=== PATIENT | male | born 1950 | race Caucasian/White ===

== ENCOUNTER → 2018-09-02 | Outpatient (CLI) | payer OTHER ==
[2018-09-02 15:13] LABS: U Amphetamine Screen Not Detected; U Barbituate Screen Not Detected; U Benzodiazapine Screen Not Detected; U Buprenorphine Screen Not Detected; U Cannabinoids Screen Not Detected; U Cocaine Screen Not Detected; U Methadone Screen Not Detected; U Methamphetamine Screen Not Detected; U Opiates Screen DETECTED; U Oxycodone Screen Not Detected; U Phencyclidine Screen Not Detected; U Propoxyphene Screen Not Detected
== END | disposition home or self-care (01) ==
LOC: LAB SHORT 12:40 → LAB 12:40
PROVIDERS: Internal Medicine Hematology & Oncology
DX: Z51.81 Encounter for therapeutic drug level monitoring (principal); Z79.899 Other long term (current) drug therapy
CPT/HCPCS: G0480

== ENCOUNTER → 2018-11-27 | Outpatient (CLI) | payer OTHER ==
[2018-11-27 14:26] LABS: U Amphetamine Screen Not Detected; U Barbituate Screen Not Detected; U Benzodiazapine Screen Not Detected; U Buprenorphine Screen Not Detected; U Cannabinoids Screen Not Detected; U Cocaine Screen Not Detected; U Methadone Screen Not Detected; U Methamphetamine Screen Not Detected; U Opiates Screen DETECTED; U Oxycodone Screen Not Detected; U Phencyclidine Screen Not Detected; U Propoxyphene Screen Not Detected
== END | disposition home or self-care (01) ==
LOC: LAB 12:29 → LAB SHORT 12:29
PROVIDERS: Internal Medicine Hematology & Oncology
DX: Z51.81 Encounter for therapeutic drug level monitoring (principal); Z79.899 Other long term (current) drug therapy

== ENCOUNTER → 2020-06-03 | Outpatient (CLI) | payer OTHER ==
[2020-06-03 18:41] LABS: Thyroxine (T4) 12.1 ug/dL (4.5-12.1)
[2020-06-03 18:42] LABS: Alanine Aminotransfer (ALT/SGP 32 U/L (12-78); Albumin, Blood 4.1 g/dL (3.4-5.0); Albumin/Globulin Ratio 1.1 (0.8-1.8); Alk Phos 67 U/L (50-136); Anion Gap 10 mmol/L (6-16); Aspartate Aminotrans (AST/SGOT 26 U/L (12-37); Bilirubin, Total 0.5 mg/dL (0.1-1.0); Blood Urea Nitrogen 13 mg/dL (8-24); Bun/Creatinine Ratio 19.3 (12.0-20.0); CHOL/HDL RATIO 3.4; CO2, Blood 27 mmol/L (21-32); Calcium, Blood 9.9 mg/dL (8.5-10.1); Chloride, Blood 100 mmol/L (98-108); Cholesterol 195 mg/dL (50-200); Creatinine, Blood 0.67 mg/dL (0.60-1.20); Globulin, Blood 3.9 g/dL (2.2-4.0); Glomerular Filtration Rate >60 (60-); Glucose, Blood 81 mg/dL (70-99); HDL Cholesterol 57 mg/dL (>39); Low Density Lipoprotein Chol 116 mg/dL (0-110); Phosphorus, Blood 3.8 mg/dL (2.5-4.9); Potassium, Blood 4.6 mmol/L (3.5-5.5); Sodium, Blood 137 mmol/L (136-145); Triglycerides 109 mg/dL (30-160); Very Low Density Lipoprot Chol 21 mg/dL (6-32)
== END | disposition home or self-care (01) ==
LOC: LAB 14:58 → LAB SHORT 14:58
PROVIDERS: Internal Medicine Hematology & Oncology
DX: M81.0 Age-related osteoporosis without current pathological fracture (principal); Z79.899 Other long term (current) drug therapy
CPT/HCPCS: 80053; 80061; 84100; 84436; 84443

== ENCOUNTER → 2020-10-31 | Outpatient (CLI) | payer OTHER ==
[2020-10-31 15:49] LABS: U Amphetamine Screen Not Detected; U Barbituate Screen Not Detected; U Benzodiazapine Screen Not Detected; U Buprenorphine Screen Not Detected; U Cannabinoids Screen Not Detected; U Cocaine Screen Not Detected; U Methadone Screen Not Detected; U Methamphetamine Screen Not Detected; U Opiates Screen DETECTED; U Oxycodone Screen Not Detected; U Phencyclidine Screen Not Detected; U Propoxyphene Screen Not Detected
== END | disposition home or self-care (01) ==
LOC: LAB SHORT 13:18 → LAB 13:18
PROVIDERS: Internal Medicine Hematology & Oncology
DX: Z51.81 Encounter for therapeutic drug level monitoring (principal); Z79.899 Other long term (current) drug therapy
CPT/HCPCS: G0480

== ENCOUNTER → 2022-03-28 | Outpatient (CLI) | payer OTHER ==
[2022-03-28 13:23] LABS: Source, Urine Voided
[2022-03-28 15:14] LABS: Appearance, Urine Hazy (Clear); Bilirubin, Urine Neg (Neg); Blood, Urine Neg (Neg); Color, Urine Yellow (P-Yellow); Glucose Qualitative, Urine Neg (Neg); Ketones, Urine Neg (Neg); Leukocyte Esterase, Urine Neg (Neg); Nitrite, Urine Neg (Neg); Protein, Urine 2+ (Neg); Specific Gravity, Urine 1.015 (1.003-1.022); Urobilinogen, Urine NORM (Normal)
[2022-03-28 15:34] LABS: Amorphous Heavy (0-Heavy); Red Blood Cells, Urine 0-2 /hpf (0-2); White Blood Cells, Urine 0-2 /hpf (0-5)
[2022-03-28 15:35] LABS: Bacteria Few /hpf; Squamous Epithelial Cells Not Seen /hpf (Few)
[2022-03-28 17:09] LABS: Albumin, Blood 3.6 g/dL (3.4-5.0); Albumin/Globulin Ratio 0.9 (0.8-1.8); Bilirubin, Total 0.4 mg/dL (0.1-1.0); Bun/Creatinine Ratio 24.9 (12.0-20.0); Calcium, Blood 9.8 mg/dL (8.5-10.1); Creatinine, Blood 0.44 mg/dL (0.60-1.20); Globulin, Blood 4.1 g/dL (2.2-4.0); Phosphorus, Blood 2.7 mg/dL (2.5-4.9); Potassium, Blood 4.3 mmol/L (3.5-5.5); Total Protein, Blood 7.7 g/dL (6.4-8.2)
[2022-03-29 09:57] LABS: U Amphetamine Screen Not Detected; U Barbituate Screen Not Detected; U Benzodiazapine Screen Not Detected; U Buprenorphine Screen Not Detected; U Cannabinoids Screen Not Detected; U Cocaine Screen Not Detected; U Methadone Screen Not Detected; U Methamphetamine Screen Not Detected; U Opiates Screen DETECTED; U Oxycodone Screen Not Detected; U Phencyclidine Screen Not Detected; U Propoxyphene Screen Not Detected
== END | disposition home or self-care (01) ==
LOC: LAB 13:18 → LAB SHORT 13:18
PROVIDERS: Internal Medicine Hematology & Oncology
DX: Z51.81 Encounter for therapeutic drug level monitoring (principal); R11.0 Nausea; R30.0 Dysuria; Z79.899 Other long term (current) drug therapy
CPT/HCPCS: 80053; 81001; 84100

== ENCOUNTER 2022-04-03 18:39 | Inpatient (IN) | payer OTHER ==
[~2022-04-03] VITALS: Ht 165.1 cm; Wt 86.0 kg
[2022-04-03 19:08] LABS: Base Excess Venous 14.7 mmol/L; Bicarbonate Venous 34.9 mmol/L (24.0-30.0); PCO2 Venous 65.7 mmHg (38-42); PO2 Venous 26.3 mmHg (38-42); pH Blood Venous 7.39 (7.34-7.37)
[2022-04-03 19:24] LABS: BASOPHILS ABSOLUTE AUTO 0.05 K/mm3 (0.00-0.23); BASOPHILS PERCENT AUTO 0 % (0-2); EOSINOPHILS ABSOLUTE AUTO 0.12 K/mm3 (0.00-0.68); EOSINOPHILS PERCENT AUTO 1 % (0-6); Hematocrit 32.5 % (37.0-53.0); Hemoglobin 10.9 g/dL (13.5-17.5); IMMATURE GRAN ABSOLUTE AUTO 0.06 K/mm3 (0.00-0.10); IMMATURE GRAN PERCENT AUTO 0 % (0-1); LYMPHOCYTES ABSOLUTE AUTO 1.27 K/mm3 (0.84-5.20); LYMPHOCYTES PERCENT AUTO 8 % (21-46); MONOCYTES ABSOLUTE AUTO 1.28 K/mm3 (0.16-1.47); MONOCYTES PERCENT AUTO 8 % (4-13); Mean Corpuscular HGB 29.9 pg (26.0-34.0); Mean Corpuscular HGB Conc 33.5 g/dL (31.5-36.5); Mean Corpuscular Volume 89 fL (80-100); Mean Platelet Volume 10.8 fL (9.1-12.4); NEUTROPHILS ABSOLUTE AUTO 12.89 K/mm3 (1.96-9.15); NEUTROPHILS PERCENT AUTO 82 % (41-73); Platelet Count 409 K/mm3 (150-400); RDW Coefficient Variation 13.2 % (11.7-14.2); RDW Standard Deviation 43.3 fL (35.1-46.3); Red Blood Cell Count 3.64 M/mm3 (4.30-5.90); White Blood Cell Count 15.67 K/mm3 (4.00-11.30)
[2022-04-03 20:00] LABS: Albumin/Globulin Ratio 0.7 (0.8-1.8); Bilirubin, Total 0.3 mg/dL (0.1-1.0); Bun/Creatinine Ratio 24.3 (12.0-20.0); Calcium, Blood 8.7 mg/dL (8.5-10.1); Creatinine, Blood 0.54 mg/dL (0.60-1.20); Globulin, Blood 4.3 g/dL (2.2-4.0); Potassium, Blood 4.4 mmol/L (3.5-5.5); Total Protein, Blood 7.3 g/dL (6.4-8.2)
[2022-04-03 20:14] LABS: Influenza A, PCR NEGATIVE (NEGATIVE); Influenza B, PCR NEGATIVE (NEGATIVE); Resp Syncytial Virus, PCR NEGATIVE (NEGATIVE); SARS-Cov-2 (COVID-19) PCR, MMC NEGATIVE (NEGATIVE)
[2022-04-03] MEDS ORDERED: LOSARTAN POTAS100 M1 PO ×2 (22:35)
[2022-04-03] MEDS ORDERED: FLUTICASONE-SA1 EA10 INH ×2 (22:35)
[2022-04-03] MEDS ORDERED: [UNRECOGNIZED DRUG - CODE] PO ×2 (22:36)
[2022-04-03] MEDS ORDERED: Ventolin/Prove6.7 GM INH ×2 (22:37)
[2022-04-03] MEDS ORDERED: SULFAMETHOXAZO1 EAC1 PO ×2 (22:37)
[2022-04-03] MEDS ORDERED: ONDA4ODT MM ×2 (22:37)
[2022-04-03] MEDS ORDERED: HYDCHL25 PO ×2 (22:38)
[2022-04-03] MEDS ORDERED: IPRAT-ALBUT 0.5-3 ML INH ×2 (22:38)
[2022-04-03] MEDS ORDERED: BREZTRI AEROS10.7 GM INH ×2 (22:38)
[2022-04-03 23:38] LABS: Percent Saturation 10.8 % (20.0-50.0)
[2022-04-04 04:55] LABS: Bun/Creatinine Ratio 26.4 (12.0-20.0); Creatinine, Blood 0.53 mg/dL (0.60-1.20); Potassium, Blood 4.6 mmol/L (3.5-5.5)
--- NOTE | 2022-04-04 06:16 | NUR ---
CUFFER SUMMARY PT ARRIVED TO THE UNIT W O2 SATS >90% ON 7L OXYMIZER. THE PT ARRIVED VERY ANXIOUS ABOUT HIS BREATHING AND HIS NEED TO URINATE. THE PT WAS ASSISTED TO THE BSC TO VOID WHERE HE WAS ABLE TO VOID <200ML URINE. THE EXERTION OF GETTING FROM THE BSC TO THE BED CAUSED THE PT'S O2 SATS TO DROP TO THE LOW 80'S REQUIRING 12L OXYMIZER TO RECOVER. THIS HAPPENED AGAIN LATER IN THE SHIFT BUT THIS TIME THE PT'S O2 SATS DROPPED TO THE MID 70'S SO RT WAS NOTIFED AND THE PT WAS PLACVED ON BIPAP IT TOOK HIM SEVERAL MINUTES TO RECOVER W 15L OXYMIZER AND HAVING MUCH INCREASED WOB. PROVIDER NOTIFIED OF CHANGE AND ORDERS FOR BIPAP AND ATIVAN WERE GIVEN. PT WAS GIVEN 0.5MG ATIVAN WHICH HELPED REDUCE HIS ANXIETY AND WOB. PT CURRENTLY THIS AM W 02 SATS >90% ON BIPAP 12/5 W 35% FIO2. PT'S NA LEVEL AT 119 THIS AM SO PROVIDER NOTIFIED AND NS FLUIDS WERE INCREASED TO 200ML/HR AND AN ORDER TO REDRAW THE NA AT 0730 WAS PLACED. NEURO THE PT HAS REMAINED ALERT AND ANXIOUS W MODERATE TO SEVERE TREMORS WHEN AWAKE. PT HAS BEEN COMMUNICATING APPROPRIATELY W STAFF ALL SHIFT. BP HAS BEEN TRENDING DOWN THIS SHIFT DESPITE FLUIDS RUNNING AT 200ML/HR, LAUNCH OPERATORRENE STOKES AND PROVIDER NOTIFIED OF CHANGES. PT REMAINS AFEBRILE THIS SHIFT. TELE SHOWING SR/ST 90'S-100'S. PT CURRENTLY SLEEPING W BIPAP ON AND NS RUNNING. WILL REPORT TO ONCOMING RENE.
[2022-04-04 10:26] LABS: Albumin, Blood 2.7 g/dL (3.4-5.0); Anion Gap 8 mmol/L (6-16); Blood Urea Nitrogen 12 mg/dL (8-24); Bun/Creatinine Ratio 23.7 (12.0-20.0); CO2, Blood 32 mmol/L (21-32); Calcium, Blood 7.8 mg/dL (8.5-10.1); Chloride, Blood 82 mmol/L (98-108); Creatinine, Blood 0.51 mg/dL (0.60-1.20); Glomerular Filtration Rate 109 (60-); Glucose, Blood 129 mg/dL (70-99); Potassium, Blood 4.6 mmol/L (3.5-5.5); Sodium, Blood 122 mmol/L (136-145)
--- NOTE | 2022-04-04 11:16 | NUR ---
AM NOTES: PT ON BIPAP UPON SHIFT CHANGE, PT WAS VERY ANXIOUS RESTLESS IN BED COULDNT GET COMFORTABLE, ATTEMPTED TO SWITCH PT TO OXYMIZER UPON PT'S REQUEST ON 7L AFTER 10 MINS PT DESATTED TO 84% PT KEEPS C/O HIS BACK IS HURTING FROM LAYING IN BED AND WANTS TO SIT ON THE SIDE OF THE BED, PT WAS PLACED BACK ON BIPAP PT WAS GETTING TACHYPNEC AND VERY ANXIOUS PT O2 MAINTAINED ABOVE 90% AFTER PLACED ON BIPAP, PT TOLERATED GETTING UP IN THE RECLINER PT STATED HE FEELS MUCH BETTER SITTING UP IN THE CHAIR. BREALFAST WAS HELD DUE TO BREATHING ISSUES, AT AROUND 10A PT WAS PLACED BACK TO OXYMIZER PER PT'S REQUEST ON 10L THIS TIME, PT ABLE TO MAINTAIN SATS ABOVE 90% EVEN WITH EXERTION, PT OFFERED HIS BREAKFAST TRAY ATTEMPTED TO EAT BUT HAD SOME COUGHING SPITS WITH IT, OFFERED HEALTH SHAKE INSTEAD PT AGREED. VITALS BP WAS SOFT PRIOR TO SHIFT CHANGE SYSTOLIC 90-100'S, MAP 50-60 FLUID RUNNING AT 200MLS/HR AT THIS TIME, TRENDING NA LEVELS LAST WAS DRAWN AT 10A CURRENTLY 122, HRR SR/ST AT 90'S, DENIES ANY CHEST PAIN/PRESSURE. PT CONDOM CATH GOT DISPLACED THIS MORNING PT NOW TOLERATING THE BEDSIDE COMMODE/URINAL. NO OTHER ISSUES REPORTED, PT CALLS APPROPRIATELY ABLE TO MAKE NEEDS KNWON, WILL CONTINUE TO MONITOR
--- NOTE | 2022-04-04 18:25 | NUR ---
PT SUMMARY: SEE PREVIOUS NOTES, PT NOW CURRENTLY ON 6L OF O2 VIA OXYMIZER PT TOLERATING WELL WAS ON BIPAP AFTER LUNCH TIME FELL ASLEEP FOR COUPLE OF HOURS AFTER ATIVAN WAS GIVEN DUE TO ANXIETY, PT'S BP WENT DOWN TO 80'S SYSTOLIC AFTER ATIVAN WAS GIVEN MAP ABOVE 60'S SYSTOLIC WENT BACK UP TO 100-115 WHEN AWAKE, OTHERWISE BP SYSTOLIC REMAINED ABOVE 120'S T/O SHIFT. PT DENIES ANY CHEST PAIN/PRESSURE STILL HAS UPON EXERTION USES THE BEDSIDE COMMODE FOR TOILETING, PT HAS BEEN CONTINENT ALL SHIFT. BROTHER CAME IN TO VISIT. DIET SWITCHED TO MECHANICAL SOFT PT LEFT DENTURES AT HOME, PT ABLE TO TOLERATE. BIPAP ON STANDBY NO OTHER ISSUES AT THIS TIME, ABLE TO MAKE NEEDS KNOWN CALLS APPROPRIATELY, WILL REPORT TO ONCOMING SHIFT
--- NOTE | 2022-04-04 22:50 | NUR ---
CARE ASSUMPTION: PATIENT ASLEEP IN BED WITH OXYMIZER 7L IN PLACE. O2 SATS >92%. PATIENT DIFFICULT TO AWAKE AND BECAME ANXIOUS WHEN AWAKE. THERAPEUTIC COMMUNICATION AND REPOSITIONING SETTLED HIM. ASSISTED TO BSC. BED LOW WITH CALL LIGHT IN REACH.
[2022-04-05 04:28] LABS: PO2 Arterial 95.2 mmHg (80-100)
[2022-04-05 04:29] LABS: PCO2 Arterial 71.9 mmHg (35-45); pH Blood Arterial 7.28 (7.35-7.45)
[2022-04-05 04:40] LABS: Hematocrit 30.8 % (37.0-53.0); Hemoglobin 9.8 g/dL (13.5-17.5); Mean Corpuscular HGB 29.6 pg (26.0-34.0); Mean Corpuscular HGB Conc 31.8 g/dL (31.5-36.5); Mean Corpuscular Volume 93 fL (80-100); Mean Platelet Volume 10.7 fL (9.1-12.4); Platelet Count 414 K/mm3 (150-400); RDW Coefficient Variation 13.4 % (11.7-14.2); RDW Standard Deviation 45.7 fL (35.1-46.3); Red Blood Cell Count 3.31 M/mm3 (4.30-5.90); White Blood Cell Count 11.89 K/mm3 (4.00-11.30)
--- NOTE | 2022-04-05 04:52 | NUR ---
UPDATE: PATIENT REFUSING BIPAP, INCREASED CONFUSION AND AGITATION. MEDICATED PER EMAR WITH INCREASED AGITATION. ABG RESULTED IN CRITICAL PH 7.28 AND CO2 71.9. CALL PLACED TO RESIDENT. PATIENT TO TRANSFER TO ICU.
[2022-04-05 05:02] LABS: Albumin, Blood 2.5 g/dL (3.4-5.0); Anion Gap 3 mmol/L (6-16); Blood Urea Nitrogen 14 mg/dL (8-24); Bun/Creatinine Ratio 25.5 (12.0-20.0); CO2, Blood 34 mmol/L (21-32); Calcium, Blood 7.6 mg/dL (8.5-10.1); Chloride, Blood 91 mmol/L (98-108); Creatinine, Blood 0.55 mg/dL (0.60-1.20); Glomerular Filtration Rate 107 (60-); Glucose, Blood 157 mg/dL (70-99); Phosphorus, Blood 2.5 mg/dL (2.5-4.9); Potassium, Blood 4.5 mmol/L (3.5-5.5); Sodium, Blood 128 mmol/L (136-145)
--- NOTE | 2022-04-05 05:23 | NUR ---
TRANSFER OF CARE: REPORT GIVEN TO FERMIN DENNIS, SILVERSMITH APPRENTICE. PATIENT TRANSFERRED TO ICU 9 VIA PCU BED. THIS RN CALLED AND SPOKE WITH PATIENT'S FRIEND AMILCAR AND PROVIDED AN UPDATE ON PATIENT CONDITION AND NEW ROOM LOCATION.
--- NOTE | 2022-04-05 05:42 | NUR ---
ASSESSMENT/ASSUMED CARE PT TRANSFERED FROM PCU TO ICU 9 FOR BIPAP AND PRECEDEX. PT ARRIVED VIA BED WITH STAFF. TRANSFERED TO BED BY STAFF WITH SLIDER SHEET. PT AWAKE FOLLOWING INSTRUCTIONS. SPEECH CLEAR AND APPROP. LUNGS CLEAR BUT DECREASE ON 6 LITERS HIF[place] NC. RT AT BEDSIDE TO PLACE PT ON BIPAP. HEART RATE 80'S. BP STABLE. SKIN DRY AND FLAKEY. MAWE. TURNING SELF IN BED. POWER GLIDE TO LEFT UPPER ARM WITH NS AT 100 ML/HR AND STARTED ON PRECEDEX AT 0.4 MCQ/KG/MIN. IV 20G TO LEFT FOREARM SALINE LOCKED. PT TURNED SELF TO RIGHT SIDE. 0600 MEDS GIVEN WITH SIPS OF WATER. PT GIVEN WARM BLANKET.
--- NOTE | 2022-04-05 08:00 | NUR ---
Received report from Winter LÓPEZ. Patient is sleeping with BIPAP in place and setttings of 14/5 and 25% with sats 95%. he is in SR 60-70's. When awakened he is very agitated and wants BIPAP off and after explantionplaced back on and helped with urinal. He has PowerGlide to CLIFTON and dressing intact and is infusing NS at 100 ml/hr and Precedex at 0.4 mcg/kg/hr. He has been using urinal with assist or up to bedside cammode. ORTEGA but weak. His speech is slurred at times and speaks very quickly. Whe he pulled BIPAP off he desatted very quicly to 60%'s and came up as quickly when replaced.
--- NOTE | 2022-04-05 09:52 | NUR ---
Patients by and went home to get his teeth. He has called several times to use urinal and assisted him. He remains on BIPAP 14/5 25% and has sats >90%. No changes to gtt settings.
--- NOTE | 2022-04-05 11:30 | NUR ---
Patient remaisn resting with BIPAP in place, No changes to BIPAP and or gtt settings. He is more understandable with care.. ORTEGA but weak. Assisted with Urinal.
--- NOTE | 2022-04-05 13:50 | NUR ---
Patient is awake and sitting up in bed. Changed linen and boosted with repositioning. He is curretly tolerating a sandwich and pepsi and is on NC 7L O2 . H ejustb asked to be placed back on BIPAP and is comfortable nowNo changes to gtt's
--- NOTE | 2022-04-05 16:07 | NUR ---
Patient has been off abnd on BIPAP when feeling SOB. he is oriented and is able yo communicate his needs. He becomes quickly tired with any activity. He is currently on BiPAP 14/5 and 30% and Sat>90%. He calls appropriately and asks for urinal and has had 600 ml yellow urine. NS at 60 ml/hr and Precedex 0.4 and seems to be keeping him calm. He has been calling friends and family when off BIPAP.
--- NOTE | 2022-04-05 18:01 | NUR ---
Patient awake sitting up in bedand is on 7L O2 via NC and is able to communicate his needs. He is ussually able to be off for 30 minuntes at a time and request to replace BIPAP. He is got 20ga PowerGlide CLIFTON and is infusing NS at 60 ml/hr and Precedex at 0.4 mcg/kg/hr and is working well to have him tolerate. He started to desat and request to have BIPAP placed and recovered from low 80 to 90's quickly. This is with minimal exertion in bed. He is now on 14 30%b Bipap and is at 95%. .
--- NOTE | 2022-04-05 20:00 | NUR ---
ASSESSMENT/ASSUMED CARE PT SITTING UP IN BED W/ BIPAP ON. RT REMOVED BIPAP AND PLACED PT ON 6L HIFLO NC. PT A/O, TALKING, FOLLOWING DIRECTIONS, MOVING SELF IN BED. LUNGS COARSE T/O, L EXP WHEEZES, SPO2 DOWN TO 89% BRIEFLY, COMES IMMEDIATELY BACK TO MID 90S. NSR, VSS. POWERGLIDE IN L UPPER ARM INFUSING PRECIDEX AT 0.4MCG/KG/MIN AND NS AT 60ML/HR. DRG PEELING UP, WILL BE CHANGING DRESSING. SKIN WARM, DRY AND FLAKEY. LEFT FOREARM IV TENDER TO FLUSH, D/C INTACT, NEW 20G IV PLACED TO L WRIST W/O DIFF.
--- NOTE | 2022-04-06 00:36 | NUR ---
BIPAP PT PLACED ON BIPAP. 06/01 FIO2 30%. PT SITTING UP IN BED, WATCHING TV. REPORTS IMPROVED PAIN /. PT STATES "PAIN NEVER GOES AWAY".
[2022-04-06 03:50] LABS: Hematocrit 31.4 % (37.0-53.0); Hemoglobin 9.9 g/dL (13.5-17.5); Mean Corpuscular HGB 29.7 pg (26.0-34.0); Mean Corpuscular HGB Conc 31.5 g/dL (31.5-36.5); Mean Corpuscular Volume 94 fL (80-100); Mean Platelet Volume 10.5 fL (9.1-12.4); Platelet Count 453 K/mm3 (150-400); RDW Coefficient Variation 13.5 % (11.7-14.2); RDW Standard Deviation 46.5 fL (35.1-46.3); Red Blood Cell Count 3.33 M/mm3 (4.30-5.90); White Blood Cell Count 10.72 K/mm3 (4.00-11.30)
[2022-04-06 04:12] LABS: Albumin, Blood 2.6 g/dL (3.4-5.0); Anion Gap 3 mmol/L (6-16); Blood Urea Nitrogen 18 mg/dL (8-24); CO2, Blood 33 mmol/L (21-32); Calcium, Blood 7.8 mg/dL (8.5-10.1); Chloride, Blood 95 mmol/L (98-108); Creatinine, Blood 0.42 mg/dL (0.60-1.20); Glomerular Filtration Rate 116 (60-); Glucose, Blood 167 mg/dL (70-99); Phosphorus, Blood 1.3 mg/dL (2.5-4.9); Potassium, Blood 4.6 mmol/L (3.5-5.5); Sodium, Blood 131 mmol/L (136-145)
--- NOTE | 2022-04-06 05:37 | NUR ---
SHIFT SUMMARY PT A/O X 4. TALKING AND FOLLOWING DIRECTIONS. ANXIOUS AT TIMES, ON PRECEDEX. LUNG SOUNDS CLEAR IN RUL, DIM IN RML/RLL. EXP WHEEZES IN SHABANA/LLL. PT RECIEVING Q4 NEBS. NSR W/ 1ST DEG IN 60-80S. VSS. PT ON BIPAP PERIODCALLY W/ FREQUENT BREAKS. ENCOURGED T/O NIGHT TO WEAR BIPAP. 14/5 FIO2 30%. WEARS 6L NC DURING BREAKS. SATS IN HIGH 90'S. OCCASIONAL DROPS TO 89% WITH A FAST RECOVERY. VIODS IN URINAL W/ ASSISTANCE.
[2022-04-06 05:55] LABS: PO2 Arterial 82.9 mmHg (80-100); pH Blood Arterial 7.42 (7.35-7.45)
--- NOTE | 2022-04-06 17:36 | NUR ---
SHIFT SUMMARY PT HAS REMAINED OFF BIPAP THROUGHOUT THE SHIFT. PT SPO2 HAS REMAINED >92% ON 6L O2 NC. PT WITH BREIF COMPLAINTS OF SOB WITH EXERTION. VITAL SIGNS STABLE. PT UP TO BEDSIDE COMMODE FOR ATTEMPTED BM'S MULTIPLE TIMES THIS SHIFT. PT WITH BM THIS AFTERNOON. PT VOIDS IN BSC. PG REMAINS IN PLACE WITH NS INFUSING TKO. PT REMAINS TREMULOUS WITH MOVEMENT. PT MED FOR PAIN AND ANXIETY PER EMAR. WILL CONTINUE TO MONITOR AND REPORT OFF TO ONCOMING RN.
--- NOTE | 2022-04-06 18:18 | NUR ---
ARRIVAL TO PCU/SHIFT SUMMARY THIS RN ASSUMED CARE AT 1815 AND RECEIVED REPORT FROM BALJIT LÓPEZ AT 1800. VSS. TELE SINUS TACH. PATIENT TRANSFERD TO PCU VIA WHEELCHAIR. PATIENT TRANSFERED TO PCU BED WITH A STAND BY ASSIST. PATIENT IS ALERT AND ORIENTED X4. PATIENT REPORTS HAVING A LARGE BM OVER IN ICU. PATIENT LUNGS SOUNDS THROUGHOUT TIGHT AND DIM. PATIENT IS ON 6L NC WITH SPO2 >95%. PATIENT REPORTS NO CHEST PAIN/PRESSURE OR SHORTNESS OF BREATH. UPON PAIN REASSESSMENT PATIENT PAIN HAS DECREASED FROM A 9 TO A 5. PATIENT IS TREMOLOUS. PATIENT IS IN NO CARDIAC OR RESPIRATORY DISTRESS. ORIENTED TO CALL LIGHT AND HOW TO USE IT. EDUCATED THE PATIENT ON PUSHING CALL LIGHT ONLY WHEN NEEDING ASSISTANCE FOR URGENT MATTERS . PATIENT HAS PUSHED CALL LIGHT FREQUENTLY AND OFTEN SINCE ARRIVING TO THE UNIT. WILL CONTINUE TO MONITOR AND PROVIDE CARE UNTIL HAND OFF WITH NEXT SHIFT.
--- NOTE | 2022-04-06 18:21 | NUR ---
TRANSFER TO PCU PT TAKEN TO PCU 17 BY WHEEL CHAIR. ALL PT MEDS AND BELONGINGS SENT WITH PT.
[2022-04-07 01:52] LABS: Base Excess Venous 10.1 mmol/L; PCO2 Venous 59.3 mmHg (38-42); pH Blood Venous 7.38 (7.34-7.37)
[2022-04-07 02:25] LABS: Albumin, Blood 2.8 g/dL (3.4-5.0); Anion Gap 5 mmol/L (6-16); Blood Urea Nitrogen 15 mg/dL (8-24); Bun/Creatinine Ratio 36.3 (12.0-20.0); CO2, Blood 33 mmol/L (21-32); Calcium, Blood 8.1 mg/dL (8.5-10.1); Chloride, Blood 95 mmol/L (98-108); Creatinine, Blood 0.41 mg/dL (0.60-1.20); Glomerular Filtration Rate 117 (60-); Glucose, Blood 132 mg/dL (70-99); Potassium, Blood 4.9 mmol/L (3.5-5.5); Sodium, Blood 133 mmol/L (136-145)
--- NOTE | 2022-04-07 07:57 | NUR ---
NOC SHIFT SUMMARY PT ANXIOUS AT START OF SHIFT, PRNS GIVEN W/LITTLE RELIEF. NOTIFIED DR. SAAB, AND PO ATARAX ORDER RECEIVED. AROUND 2200 THIS RN NOTED INCREASE IN HR TO 120S-140S. TACHYPNEA IN MID 20S. AND ANXIETY, OTHER VSS. NOTIFIED PROVIDER AND ORDER FOR IV METOPROLOL AND IV ATIVAN RECEIVED WITH DECREASE IN HR TO 110S. PT INCREASINGLY RESTLESS, FREQUENTLY MOVING FROM BED TO CHAIR DESPITE ATTEMPTS TO GET COMFORTABLE. 0100 HR INCREASED AGAIN AND PROVIDER ORDERED CARDIZEM GTT. CARDIZEM GTT STARTED @5ML AND BP DECREASED TO 80S SYSTOLIC. CARDIZEM GTT TURNED OFF AND NOTIFIED. OK TO MONITOR IF HR STAYS BELOW 130. BNP AND VBG ORDERED WELL. MD NOTIFIED OF RESULTS.
--- NOTE | 2022-04-07 09:20 | NUR ---
Care Accumed 0700 Pt A/O X 4, able to state correct location, event, and president. Anxious and states having pain in lower extrems (8/10), treated per emar. On 6 L via HIFLO NC or on Bipap. Pt switches back and forth, depending on what makes him feel less anxious. Lung sounds dim/corse t/o. SPO2 > 90'S. In AFIB, HR 130's when anxious and in 110-120's when resting. BP stable. Hypertensive when very anxious. Able to use bedside comdo with one person assist. Currently sitting in chair.
--- NOTE | 2022-04-07 09:33 | NUR ---
Provider Visit Dr. Trujillo in to see patient. New orders recieved for AFIB. See emar.
--- NOTE | 2022-04-07 19:42 | NUR ---
Shift Summary Pt A/O X 4, remains on 6 L [place] NC, SPO2 > 90%. VSS. HR 110'S, AFIB at times and converts to NSR occasionally. Pt continues to have bilateral lower extrem pain, treated per emar. Anxious, Will report to nightshift.
--- NOTE | 2022-04-08 05:22 | NUR ---
SHIFT SUMMARY PT ALERT AND ORIENTED X 4. FORGETFUL AT TIMES. BED ALARM IN PLACE PT IMPULSIVE. PT REPORTS PAIN AT TIME. MEDICATED,SEE EMAR. PT SLEPT T/O SHIFT. HR STABLE. BP STABLE. NO CP OR PRESSURE. OXYGEN SATURATION MAINTAINED ABOVE 6 LVIA NC. PT UNABLE TO TOLERATE BIPAP FOR MORE THAN ONE HOUR DURING SHIFT. CALL LIGHT WITHIN REACH. WILL CONT TO MONITOR UNTIL REPORT GIVEN TO DAYSHIFT RN.
[2022-04-08 10:59] LABS: Albumin, Blood 2.7 g/dL (3.4-5.0); Anion Gap 5 mmol/L (6-16); Blood Urea Nitrogen 17 mg/dL (8-24); Bun/Creatinine Ratio 40.5 (12.0-20.0); CO2, Blood 37 mmol/L (21-32); Calcium, Blood 8.2 mg/dL (8.5-10.1); Chloride, Blood 93 mmol/L (98-108); Creatinine, Blood 0.42 mg/dL (0.60-1.20); Glomerular Filtration Rate 116 (60-); Glucose, Blood 157 mg/dL (70-99); Phosphorus, Blood 2.1 mg/dL (2.5-4.9); Potassium, Blood 4.4 mmol/L (3.5-5.5); Sodium, Blood 135 mmol/L (136-145)
--- NOTE | 2022-04-08 16:54 | NUR ---
SHIFT SUMMARY MR. ZHENG HAS BEEN RESTING IN HIS ROOM THROUGHOUT THE DAY. HE HAS CALLED APPROPRIATELY FOR ASSISTANCE AND HAS NOT ATTEMPTED TO GET UP WITHOUT FIRST CALLING. OXYGEN VIA NASAL CANNULA HAS BEEN AT 6L/MIN, SPO2 READINGS HAVE FALLEN TO 86% WHILE TRANSFERRING FROM CHAIR TO BEDSIDE COMMODE. THE PATIENT BECOMES SHORT OF BREATH WITH ANY FORM OF EXERTION. TEMPERATURE, PULSE, AND BLOOD PRESSURE HAVE REMAINED STABLE AND WNL.
[2022-04-09 04:56] LABS: Albumin, Blood 2.5 g/dL (3.4-5.0); Anion Gap 2 mmol/L (6-16); Blood Urea Nitrogen 18 mg/dL (8-24); Bun/Creatinine Ratio 34.4 (12.0-20.0); CO2, Blood 40 mmol/L (21-32); Calcium, Blood 8.4 mg/dL (8.5-10.1); Chloride, Blood 93 mmol/L (98-108); Creatinine, Blood 0.52 mg/dL (0.60-1.20); Glomerular Filtration Rate 108 (60-); Glucose, Blood 171 mg/dL (70-99); Phosphorus, Blood 3.7 mg/dL (2.5-4.9); Potassium, Blood 4.3 mmol/L (3.5-5.5); Sodium, Blood 135 mmol/L (136-145)
--- NOTE | 2022-04-09 05:45 | NUR ---
SHIFT SUMMARY PT ALERT AND ORIENTED. FORGETFUL AT TIMES. BED ALARM AND TAB ALARM IN PLACE. OXYGEN SATURATION MAINTAINED ABOVE 94% ON 6 L VIA NC. PT REFUSES BIPAP. PT ABLE TO TURN SELF IN BED. SBA. PT WENT INTO AFIB DURING SHIFT UP TO 130'S. MEDICATED WITH PRN CARDIZEM. HR CURRENLTY 80'S NSR. NO CP OR PRESSURE. BP STABLE. PT REPORTS PAIN, MEDICATED DURING SHIFT. SEE EMAR. CALL LIGHT WITHIN REACH. WILL CONT TO MONITOR UNTIL REPORT GIVEN TO DAYSHIFT RN.
[2022-04-09 05:55] LABS: PCO2 Arterial 63.8 mmHg (35-45); PO2 Arterial 176 mmHg (80-100); pH Blood Arterial 7.43 (7.35-7.45)
--- NOTE | 2022-04-09 17:38 | NUR ---
SHIFT SUMMARY PT HAS BEEN MOTIVATED TO WORK WITH THERAPIES AND HAS A POSITIVE OUTLOOK ON DISCHARGE AND ABILITY TO IMPROVE. THIS RN SETUP A REMOTE SPO2 MONITOR IN ORDER TO PLACE THE IN-ROOM MONITOR ON STAND-BY. PT HAS HAD A REDUCED LEVEL OF ANXIETY SINCE BEING UNABLE TO HEAR MONITOR ALARMS. PT HAS BEEN STABLE ON 5L OXYGEN BY NASAL CANNULA SINCE CHANGING THE MONITORS. VITAL SIGNS STABLE, NO CHANGES IN CONDITION.
[2022-04-10 04:06] LABS: Albumin, Blood 2.3 g/dL (3.4-5.0); Anion Gap 3 mmol/L (6-16); Blood Urea Nitrogen 22 mg/dL (8-24); Bun/Creatinine Ratio 31.2 (12.0-20.0); CO2, Blood 40 mmol/L (21-32); Calcium, Blood 8.4 mg/dL (8.5-10.1); Chloride, Blood 92 mmol/L (98-108); Creatinine, Blood 0.71 mg/dL (0.60-1.20); Glomerular Filtration Rate 99 (60-); Glucose, Blood 145 mg/dL (70-99); Phosphorus, Blood 3.4 mg/dL (2.5-4.9); Sodium, Blood 135 mmol/L (136-145)
--- NOTE | 2022-04-10 06:18 | NUR ---
SHIFT SUMMARY PT ALERT AND ORIENTED X 4. HR STABLE. BP STABLE. NO CP OR PRESSURE. OXYGEN SATURATION MAINTAINED ABOVE 94% ON 5 L VIA NC. PT WENT INTO AFIB DURING SHIFT,GIVE CARDIZEM PO ONCE. CONVERTED BACK TO NSR. HR CURRENLTY 89. PT ABLE TO TURN SELF IN BED. FORGETUFL AT TIMES. BED ALARM IN PLACE. CALL LIGHT WITHIN REACH. WILL CONT TO MONITOR UNTIL REPORT GIVEN TO DAYSHIFT RN.
[2022-04-10] MEDS ORDERED: ACET325 PO ×2 (11:54)
[2022-04-10] MEDS ORDERED: Aspir 8181 MG PO ×2 (11:55)
[2022-04-10] MEDS ORDERED: ASCO500 PO ×2 (11:55)
[2022-04-10] MEDS ORDERED: BISA10S PR ×2 (11:56)
[2022-04-10] MEDS ORDERED: DILT120 PO ×2 (11:56)
[2022-04-10] MEDS ORDERED: DOCU100 PO ×2 (11:57)
[2022-04-10] MEDS ORDERED: FERSU300 PO ×2 (11:57)
[2022-04-10] MEDS ORDERED: PANT20 PO ×2 (11:57)
[2022-04-10] MEDS ORDERED: Prednisone10 MG PO ×2 (11:59)
[2022-04-10] MEDS ORDERED: SENN187 PO ×2 (11:59)
[2022-04-10] MEDS ORDERED: VISBIOME 112.51 EACH PO ×2 (12:00)
--- NOTE | 2022-04-10 15:30 | NUR ---
DISCHARGE SHAQ PT WAS TRANSPORTED BY WHEELCHAIR TO PERSONAL VEHICLE. ALL PERSONAL BELONGINGS AND DISCHARGE INSTRUCTIONS WERE IN THE POSSESSION OF THE PATIENT'S FRIEND AT TIME OF DISCHARGE. ALL QUESTIONS AND CONCERNS WERE ADDRESSED PRIOR TO DISCHARGE. AN UNDERSTANDING OF INSTRUCTIONS AND CONTACTS FOR FUTURE QUESTIONS OR CONCERNS WAS VERBALIZED BY THE PATIENT.
== END 2022-04-10 14:31 | disposition home or self-care (01) | DRG 871 ==
LOC: ER 18:39 → PCU 22:03 → ICUW 04-05 05:15 → PCU 04-06 18:06
PROVIDERS: Emergency Medicine; Family Medicine; Internal Medicine; ADMIT Internal Medicine
PROC: 3E03329 Introduction of Other Anti-infective into Peripheral Vein, Percutaneous Approach (ICD-10-PCS; 2022-04-03)
PROC: 5A09357 Assistance with Respiratory Ventilation, Less than 24 Consecutive Hours, Continuous Positive Airway Pressure (ICD-10-PCS; 2022-04-04)
PROC: 5A0945A Assistance with Respiratory Ventilation, 24-96 Consecutive Hours, High Flow/Velocity Cannula (ICD-10-PCS; principal; 2022-04-06)
DX: A41.9 Sepsis, unspecified organism (principal); J18.9 Pneumonia, unspecified organism; J96.21 Acute and chronic respiratory failure with hypoxia; J96.22 Acute and chronic respiratory failure with hypercapnia; J44.1 Chronic obstructive pulmonary disease with (acute) exacerbation; E87.1 Hypo-osmolality and hyponatremia; J44.0 Chronic obstructive pulmonary disease with (acute) lower respiratory infection; Z87.891 Personal history of nicotine dependence; Z99.2 Dependence on renal dialysis; E83.39 Other disorders of phosphorus metabolism; G89.29 Other chronic pain; M54.59 Other low back pain; D50.9 Iron deficiency anemia, unspecified; F41.9 Anxiety disorder, unspecified; I48.0 Paroxysmal atrial fibrillation; E87.70 Fluid overload, unspecified
CPT/HCPCS: 0241U; 36415; 36600; 71045; 80048; 80053; 80069; 82570; 82728; 82803; 83540; 83550; 83605; 83735; 83880; 83935; 84295; 84300; 84484; 85025; 85027; 87040; 93005; 93010; 94640; 94644; 94660; 94664; 94761; 94762; 96374; 96375; 97110; 97116; 97162; 97166; 97530; 97535; 98960; 99285-25; A9270; C1751; C9113; J0696; J1650; J1940; J2060; J2930; J3010; J7030; J7050; J7060; J7512

== ENCOUNTER → 2022-04-17 | Outpatient (CLI) | payer OTHER ==
[~2022-04-17] MED LIST: ACET325 PO; ASCO500 PO; Aspir 8181 MG PO; BISA10S PR; BREZTRI AEROS10.7 GM INH; DILT120 PO; DOCU100 PO; FERSU300 PO; FLUTICASONE-SA1 EA10 INH; HYDCHL25 PO; IPRAT-ALBUT 0.5-3 ML INH; LOSARTAN POTAS100 M1 PO; ONDA4ODT MM; PANT20 PO; Prednisone10 MG PO; SENN187 PO; SULFAMETHOXAZO1 EAC1 PO; VISBIOME 112.51 EACH PO; Ventolin/Prove6.7 GM INH; [UNRECOGNIZED DRUG - CODE] PO
[2022-04-17 19:33] LABS: Percent Saturation 29.3 % (20.0-50.0)
[2022-04-17 19:45] LABS: Albumin, Blood 3.2 g/dL (3.4-5.0); Albumin/Globulin Ratio 1.1 (0.8-1.8); Bilirubin, Total 0.3 mg/dL (0.1-1.0); Bun/Creatinine Ratio 28.3 (12.0-20.0); Calcium, Blood 9.1 mg/dL (8.5-10.1); Creatinine, Blood 0.46 mg/dL (0.60-1.20); Phosphorus, Blood 2.7 mg/dL (2.5-4.9); Potassium, Blood 3.8 mmol/L (3.5-5.5); Total Protein, Blood 6.2 g/dL (6.4-8.2)
== END | disposition home or self-care (01) ==
LOC: LAB 11:25 → LAB SHORT 11:25
PROVIDERS: Internal Medicine Hematology & Oncology
DX: J44.9 Chronic obstructive pulmonary disease, unspecified (principal); I10 Essential (primary) hypertension; D50.9 Iron deficiency anemia, unspecified; Z79.899 Other long term (current) drug therapy
CPT/HCPCS: 80053; 82728; 83540; 83550; 84100

== ENCOUNTER 2022-05-03 08:50 | Inpatient (IN) | payer OTHER ==
[~2022-05-03] VITALS: Ht 167.6 cm; Wt 76.8 kg
[~2022-05-03 08:50] MED LIST changes: +DELTASONE20 MG PO; -Prednisone10 MG PO
[2022-05-03 09:28] LABS: EOSINOPHILS ABSOLUTE AUTO 0.15 K/mm3 (0.00-0.68); EOSINOPHILS PERCENT AUTO 1 % (0-6); Mean Corpuscular HGB 30.7 pg (26.0-34.0); NEUTROPHILS PERCENT AUTO 77 % (41-73)
[2022-05-03 09:43] LABS: Albumin, Blood 2.9 g/dL (3.4-5.0); Albumin/Globulin Ratio 0.8 (0.8-1.8); BASOPHILS ABSOLUTE AUTO 0.04 K/mm3 (0.00-0.23); BASOPHILS PERCENT AUTO 0 % (0-2); Bilirubin, Total 0.3 mg/dL (0.1-1.0); Bun/Creatinine Ratio 40.1 (12.0-20.0); Calcium, Blood 8.6 mg/dL (8.5-10.1); Creatinine, Blood 0.45 mg/dL (0.60-1.20); Globulin, Blood 3.8 g/dL (2.2-4.0); Hematocrit 28.2 % (37.0-53.0); Hemoglobin 9.4 g/dL (13.5-17.5); IMMATURE GRAN ABSOLUTE AUTO 0.08 K/mm3 (0.00-0.10); IMMATURE GRAN PERCENT AUTO 1 % (0-1); LYMPHOCYTES PERCENT AUTO 11 % (21-46); MONOCYTES ABSOLUTE AUTO 1.06 K/mm3 (0.16-1.47); MONOCYTES PERCENT AUTO 10 % (4-13); Mean Corpuscular HGB Conc 33.3 g/dL (31.5-36.5); Mean Corpuscular Volume 92 fL (80-100); NEUTROPHILS ABSOLUTE AUTO 8.53 K/mm3 (1.96-9.15); Potassium, Blood 4.1 mmol/L (3.5-5.5); RDW Coefficient Variation 15.7 % (11.7-14.2); RDW Standard Deviation 52.8 fL (35.1-46.3); Red Blood Cell Count 3.06 M/mm3 (4.30-5.90); Total Protein, Blood 6.7 g/dL (6.4-8.2); White Blood Cell Count 11.06 K/mm3 (4.00-11.30)
[2022-05-03 10:03] LABS: Mean Platelet Volume 10.1 fL (9.1-12.4); Platelet Count 526 K/mm3 (150-400)
[2022-05-03 10:45] LABS: PCO2 Arterial 53.8 mmHg (35-45); pH Blood Arterial 7.44 (7.35-7.45)
--- NOTE | 2022-05-03 18:11 | NUR ---
SHIFT SUMMARY PT HAS BEEN RESTING IN BED SINCE ARRIVING TO THE UNIT FROM ED. UPON ARRIVAL PT STATED 05/05 TO "EVERYWHERE," WHEN ASKED TO CLARIFY THEY STATED CHRONIC PAIN IN THEIR BACK AND LEGS RADIATES. ORDERS WERE OBTAINED TO RESUME HOME PAIN MANAGEMENT REGIMEN AND PT STATED A RELIEF OF PAIN TO 12/03. SPO2 HAS BEEN VOLATILE RANGING FROM 80%-99% ON 5L BY NASAL CANNULA. PT HAS MAINTAINED A MODERATE LEVEL OF ANXIETY THROUGHOUT. LUNG NETTLES PRODUCE A WHEEZE BY AUSCULTATION IN BILATERAL UPPER LOBES AND ARE DIMINISHED THROUGHOUT OTHER NETTLES.
[2022-05-04 01:19] LABS: SARS-Cov-2 (COVID-19) PCR, MMC NEGATIVE (NEGATIVE)
[2022-05-04 04:27] LABS: Mean Corpuscular HGB 29.9 pg (26.0-34.0); Mean Corpuscular Volume 96 fL (80-100); Mean Platelet Volume 10.1 fL (9.1-12.4); Platelet Count 532 K/mm3 (150-400); RDW Coefficient Variation 15.8 % (11.7-14.2); RDW Standard Deviation 56.2 fL (35.1-46.3); Red Blood Cell Count 3.01 M/mm3 (4.30-5.90); White Blood Cell Count 9.31 K/mm3 (4.00-11.30)
[2022-05-04 04:40] LABS: Bun/Creatinine Ratio 36.9 (12.0-20.0); Calcium, Blood 8.8 mg/dL (8.5-10.1); Creatinine, Blood 0.54 mg/dL (0.60-1.20); Magnesium, Blood 2.5 mg/dL (1.6-2.4); Potassium, Blood 4.1 mmol/L (3.5-5.5)
--- NOTE | 2022-05-04 06:21 | NUR ---
SHIFT SUMMARY PT HAS SUFFERED FROM A SIGNIFICANT AMOUNT OF ANXIETY AND ISSUES WITH PAIN EVEN THOUGH START ON HOME PAIN REGIMENT. AN EXTRA DOSE OF FENT X1 GIVEN AND Q6 NORCO FOR PAIN AND 2.5 OF IV VALIUM GIVEN Q2. PT O2 NEEDS FLUCUATED THROUGH NIGHT DEPENDING ON ACTIVITY. PT INFORMED ME HE HAS BEEN ON NORCO FOR 20 YEARS AND DOES HAVE WITHDRAW SYMTOMES SUCH ANXIETY SWEATING EXTREAM TEMP CHANGES AND AGGITATION. WILL CONTINUE TO MONITOR AND REPORT OFF TO ONCOMING RN
--- NOTE | 2022-05-04 18:06 | NUR ---
NO ACUTE EVENTS T/O THE SHIFT. PT O2 WEANED DOWN TO 5L NC, REPORTEDLY HIS BASELINE. PT HAS NOT NEEDED BIPAP THIS SHIFT. MEDICATED PER EMAR PRN. USES CALL LIGHT FOR NEEDS, ABLE TO TRANSFER BETWEEN BED, CHAIR AND COMMODE INDEPENDENTLY. WILL CONTINUE TO MONITOR AND GIVE REPORT TO NOC SHIFT RN.
--- NOTE | 2022-05-05 06:27 | NUR ---
NO ACUTE EVENTS OVERNIGHT LAST NIGHT. MR. ZHENG CONTINUES ON HIS HOME DOSE OF OXYGEN AT 5 LPM PER NASAL CANNULA. HE IS DYSPNEIC WITH MINIMAL EXERTION, WHICH RESULTS IN HIS OXYGEN SATURATION LEVEL DROPPING INTO THE MID TO HIGH 80 PERENTILE RANGE WITH ACTIVITY. HE RECEIVED HIS FIRST DOSE OF MS CONTIN AND PT REPORTED THIS MORNING THAT HE BELIEVES THAT IT SEEMS TO HAVE HELPED WITH IMPROVING HIS PAIN CONTROL. HE WAS ABLE TO GO 8 HOURS WITHOUT NEEDING HIS PRN NORCO DOSE, COMPARED TO WANTING IT EVERY 4-6 HOURS. MR. ZHENG WAS ABLE TO GET SOME REST OVERNIGHT AND REPORTS THAT HE DOES FEEL MORE RESTED THIS MORNING.
--- NOTE | 2022-05-05 17:41 | NUR ---
NO ACUTE EVENTS T/O SHIFT. PT REPORTS SATISFACTORY PAIN CONTROL WITH MS CONTIN AND NORCO, ANTIANXIETY MEDICATIONS PRN. PT APPEARS TO BE AT BASELINE AT THIS TIME. PT STATES HE IS GOING [place] WHO CAN BE HIS CAREGIVER AFTER DISCHARGE. SEE DOCUMENTED VS AND ASSESSMENT. PT USES CALL LIGHT FOR NEEDS, CALL LIGHT IN REACH, WILL CONTINUE TO MONITOR AND GIVE REPORT TO NOC SHIFT RN.
--- NOTE | 2022-05-06 05:24 | NUR ---
NO ACUTE EVENTS OVERNIGHT LAST NIGHT RELATED REASON FOR ADMISSION. PT REMAINS TACHYPNEIC AT REST AND DYSPNEIC WITH MINIMAL EXERTION. SUPPLEMENTAL OXYGEN AT BASELINE HOME DOSE OF 5 LPM NASAL CANNULA. PT STATES THAT HIS PAIN SEEMS WORSE TODAY COMPARED TO YESTERDAY. PT INFORMED OF CHANGE TO MEDICATION WITH DISCONTINUATION OF MS-CONTIN HE RECEIVED THE PREVIOUS DAY. PT DID NOT SLEEP WELL AND PAIN IS 9/10 THIS MORNING. PT WANTS TO SPEAK WITH PHYSICIAN REGARDING PAIN MEDICATIONS. PER HIS REQUEST, NOTE PLACED ON WHITEBOARD TO INCLUDE NAME OF MEDICATION.
--- NOTE | 2022-05-06 18:13 | NUR ---
ASSUMED CARE OF PT AT 0700. NO ACUTE EVENTS T/O THE SHIFT. PT STATES HIS PAIN AND ANXIETY ARE WELL CONTROLLED ON MS CONTIN, XANEX AND NORCO PRN. PT IS ABLE TO TRANSFER HIMSELF INDEPENDENTLY FROM BED TO CHAIR/COMMODE. O2 REMAINS AT 5L NC T/O THE DAY. PT ABLE TO USE CALL LIGHT FOR NEEDS, CALL LIGHT IN REACH, WILL CONTINUE TO MONITOR AND GIVE REPORT TO NOC SHIFT RN.
--- NOTE | 2022-05-07 14:47 | NUR ---
SHIFT SUMMARY: COPD EXACERBATION NO SIGNIFICANT CHANGES DURING SHIFT. PATIENT IS A&OX4. VS ARE WNL AND HE IS ON 5L NC WHICH IS HIS BASELINE. FOR HIS PAIN MANAGEMENT HE HAS BEEN RECIEVING PO MS CONTIN, NORCO, WELL XANEX FOR ANXIETY. THESE MEDICATIONS HAVE BEEN MANAGING HIS PAIN AND ANXIETY STATED FROM THE PATIENT "VERY WELL". PATIENT HAS BEEN TRANSFERRING HIMSELF FROM BED, TO CHAIR, AND TO C INDEP. IN THE ROOM. PATIENT CALLS APPROPRIATELY. HE IS TOLERATING PO INTAKE AND IS VOIDING/PASSING GAS. CALL LIGHT IS WITHIN REACH. THE PLAN IS TO CONTINUE PAIN MANAGEMENT AND MAINATAIN OXYGEN SATS.
--- NOTE | 2022-05-08 07:13 | NUR ---
NO ACUTE EVENTS OVERNIGHT LAST NIGHT WITH RESPECT TO MR. ZHENG'S RESPIRATORY STATUS. HE CONTINUES TO BE DYSPNEIC WITH MINIMAL EXERTION, WHICH IS ACCOMPANIED BY A DROP IN HIS SpO2 MEASUREMENTS. HE IS ON HIS HOME DOSE OF 5 LPM OXYGEN PER NASAL CANNULA. EDUCATION PROVIDED TO MR. ZHENG REGARDING THE BENEFITS OF REDUCING HIS CAFFEINE INTAKE IT IS A STIUMLANT AND CAN ADD TO THE JITTERINESS THAT HE EXPERIENCES WITH STEROIDS, WELL HIS DIFFICULTY SLEEPING. DEMONSTRATED PURSED LIP BREATHING AND BODY POSITIONING TO USE AT TIMES WHEN HE IS EXPERIENCING DYSPNEA. MR. ZHENG ADMITS THAT HE USES HIS RESCUE INHALER QUITE FREQUENTLY AT HOME. WE DISCUSSED THE BENEFITS OF AND SIDE EFFECTS OF ALBUTEROL. I ENCOURAGED HIM TO TRY TO USE SOME OF THE BREATHING EXERCISES DEMONSTRATED A FIRST LINE TO LESSEN HIS SHORTNESS OF BREATH BEFORE REACHING FOR THE INHALER. WE HAVE DONE THIS AT LEAST 2-3 TIMES A NIGHT OVER THE PAST 3 NIGHTS WHEN HE HAS CALLED REQUESTING A BREATHING TREATMENT, AND HE WAS ABLE TO RECOVER WITHIN LESS THAN A MINUTE WITHOUT NEED TO CRANK UP HIS OXYGEN LEVEL OR TO HAVE A BREATHING TREATMENT. LAST NIGHT, MR. ZHENG COMPLAINED OF A RECURRENCE OF SOME PAIN HE HAS HAD IN THE PAST FROM A PULLED MUSCLE IN HIS BACK AND RIBS. HE WAS ABLE TO GET SOME RELIEF WITH HIS PAIN MEDICATION OVERNIGHT, BUT IS STILL HAVING SOME ASSOCIATED PAIN THIS MORNING. PASSED THIS INFORMATION ON TO DAY SHIFT RN DENY.
--- NOTE | 2022-05-08 08:13 | NUR ---
NURSING PCU DAYSHIFT: Assumed care of pt at approx 0700. A/O, very pleasant, cooperative w/care, significant anxiety. Mild general weakness though able to reposition and xfer independently, tremulous which is baseline per pt. Skin is fragile w/no noted breakdown. C/O 9/10 L rib pain which he says occurs intermittently at home and feels like a "pulled muscle", worsens w/movement though not deep inspiration, treating w/meds and repositioning. No tele in place, HT diminished, HR 100-115, SBP 137 prior to a.m. meds, 2+ BLE edema. L/S tight t/o with scattered wheezes, respirations shallow w/accessory muscle use, dyspnea w/minimal exertion, O2 sat low 90's on 5L NC (home O2), occ cough producing scant amts of thick/yellow sputum. Abd SNT, BT+, voiding w/o difficulty per pt. PIV x1, s/l. Pt has expressed concerns regarding L rib pain, will discuss w/PMD. Plan for possible discharge today. Pt denies any current needs regarding plan of care. Call light in reach and pt is able to use w/o difficulty. No s/s of acute distress at this time, cont to monitor for any changes.
[2022-05-08] MEDS ORDERED: ALPR.5 PO (10:32)
[2022-05-08] MEDS ORDERED: ELIQUIS5 M2 PO (10:33)
[2022-05-08] MEDS ORDERED: FURO40 PO (10:33)
[2022-05-08] MEDS ORDERED: MORP15ER PO (10:34)
--- NOTE | 2022-05-08 10:46 | NUR ---
NURSING PCU DISCHARGE: No significant changes noted t/o the a.m. Remains anxious though L rib pain has improved w/pain meds as scheduled. Seen by PMD, discharge home d/o received. Pt verbalized understanding of all written and verbal discharge instructions. PIV dc'd w/cath intact. Awaiting ride from friend w/plans to bring O2 from home. No s/s of acute distress. Cont to monitor until discharge is complete.
== END 2022-05-08 11:42 | disposition home or self-care (01) | DRG 291 ==
LOC: ER 08:50 → PCU 11:38 → ERHOLD 11:38 → PCU 14:00
PROVIDERS: Emergency Medicine; Nurse Practitioner Acute Care; ADMIT Internal Medicine
PROC: 5A09357 Assistance with Respiratory Ventilation, Less than 24 Consecutive Hours, Continuous Positive Airway Pressure (ICD-10-PCS; principal; 2022-05-03)
DX: I50.31 Acute diastolic (congestive) heart failure (principal); E43 Unspecified severe protein-calorie malnutrition; J96.21 Acute and chronic respiratory failure with hypoxia; J96.22 Acute and chronic respiratory failure with hypercapnia; J44.1 Chronic obstructive pulmonary disease with (acute) exacerbation; F11.20 Opioid dependence, uncomplicated; E87.1 Hypo-osmolality and hyponatremia; R65.10 Systemic inflammatory response syndrome (SIRS) of non-infectious origin without acute organ dysfunction; I24.8 Other forms of acute ischemic heart disease; Z20.822 Contact with and (suspected) exposure to COVID-19; I27.20 Pulmonary hypertension, unspecified; M54.9 Dorsalgia, unspecified; G89.29 Other chronic pain; I48.0 Paroxysmal atrial fibrillation; D50.9 Iron deficiency anemia, unspecified; I95.9 Hypotension, unspecified; Z87.891 Personal history of nicotine dependence; Z99.81 Dependence on supplemental oxygen; Z79.899 Other long term (current) drug therapy; Z79.52 Long term (current) use of systemic steroids; Z79.51 Long term (current) use of inhaled steroids; Z79.82 Long term (current) use of aspirin; Z90.49 Acquired absence of other specified parts of digestive tract; Z98.890 Other specified postprocedural states; Z68.27 Body mass index [BMI] 27.0-27.9, adult; Z91.14 Patient's other noncompliance with medication regimen
CPT/HCPCS: 36415; 36600; 71045; 80048; 80053; 82803; 83735; 83880; 84295; 84484; 85025; 85027; 93005; 93010; 93306; 94640; 94644; 94660; 94664; 94762; 96374; 96375; 96376; 99285-25; A9270; C9113; J0456; J1160; J1650; J1940; J2060; J2930; J3010; J3360; J7050; J7512; U0004

== ENCOUNTER 2022-05-09 13:03 | Inpatient (IN) | payer OTHER ==
[~2022-05-09] VITALS: Ht 167.6 cm; Wt 83.0 kg
[~2022-05-09 13:03] MED LIST changes: +ALPR.5 PO; +ELIQUIS5 M2 PO; +FURO40 PO; +MORP15ER PO
[2022-05-09 14:43] LABS: Hematocrit 30.3 % (37.0-53.0); Hemoglobin 9.4 g/dL (13.5-17.5); Mean Corpuscular HGB 30.2 pg (26.0-34.0); Mean Corpuscular Volume 97 fL (80-100); Mean Platelet Volume 10.3 fL (9.1-12.4); NRBC ABSOLUTE 0.03 K/mm3 (0.00-0.02); NRBC Auto 0.1 /100 WBC (0.0-0.2); Platelet Count 318 K/mm3 (150-400); RDW Coefficient Variation 16.5 % (11.7-14.2); RDW Standard Deviation 58.2 fL (35.1-46.3); Red Blood Cell Count 3.11 M/mm3 (4.30-5.90)
[2022-05-09 14:46] LABS: White Blood Cell Count 53.88 K/mm3 (4.00-11.30)
[2022-05-09 15:06] LABS: Albumin, Blood 2.2 g/dL (3.4-5.0); Albumin/Globulin Ratio 0.5 (0.8-1.8); Bilirubin, Total 0.4 mg/dL (0.1-1.0); Bun/Creatinine Ratio 61.1 (12.0-20.0); Calcium, Blood 8.5 mg/dL (8.5-10.1); Creatinine, Blood 0.72 mg/dL (0.60-1.20); Globulin, Blood 4.2 g/dL (2.2-4.0); Potassium, Blood 4.5 mmol/L (3.5-5.5); Total Protein, Blood 6.4 g/dL (6.4-8.2)
[2022-05-09 15:14] LABS: BASOPHILS PERCENT MAN 0 % (0-2); EOSINOPHILS PERCENT MAN 0 % (0-6); LYMPHOCYTES ABSOLUTE MAN 1.61 K/mm3 (0.84-5.20); LYMPHOCYTES PERCENT MAN 3 % (21-46); MONOCYTES ABSOLUTE MAN 5.38 K/mm3 (0.16-1.47); MONOCYTES PERCENT MAN 10 % (4-13); NEUTROPHILS ABSOLUTE MAN 46.87 K/mm3 (1.96-9.15); SEG NEUTROPHILS PERCENT MAN 87 % (41-73); TOTAL CELLS COUNTED 100
[2022-05-09 17:38] LABS: Influenza A, PCR NEGATIVE (NEGATIVE); Influenza B, PCR NEGATIVE (NEGATIVE); Resp Syncytial Virus, PCR NEGATIVE (NEGATIVE); SARS-Cov-2 (COVID-19) PCR, MMC NEGATIVE (NEGATIVE)
--- NOTE | 2022-05-09 18:50 | NUR ---
PATIENT TRANSFER NOTE PATIENT TRANSFERRED TO PCU 1 AT 1745. PATIENT WITH NOTED HYPOTENSION AFTER TRANSFERRING TO BED. MARIA ISABEL RN CALLED MD WITH ORDERS FOR 500ML BOLUS. GIVEN AT 500MLS/HR DUE TO CHF AND REPORTED LOW EF. PATIENT HAS HAD SEVERAL BP'S WITH MAP <65. MD NOTIFIED. PATIENT HAS HAD 400ML BOLUS WITH MAP CURRENTLY AT 68, SBP OF 103. MD WILL BE NOTIFIED IF MAP CONTINUES TO BE <65 AFTER BOLUS IS COMPLETE. PATIENT ON [place] NC 5L WITH O2 >92%. PATIENT'S BASELINE O2 IS 5L. COARSE LUNG SOUNDS IN BASES NOTED. PATIENT WITH PITTING EDEMA IN BLE. RT AT BEDSIDE WITH BREATHING TREATMENT CURRENTLY. THIS RN WILL CONTINUE TO MONITOR AT BEDSIDE UNTIL SHIFT CHANGE AT 1900.
--- NOTE | 2022-05-10 04:10 | NUR ---
0300 -PT BECOMING INCREASINGLY RESTLESS/TACHYPNEIC, BP SOFT WHEN SLEEPING BUT NORMALIZES WHEN AWAKENED AND RECHECKED. DENIES BEING SYMPTOMATIC. COMPLAINING OF L POSTERIOR UPPER BACK PAIN. 031 - RESIDENT - DR. BLACK CALLED TO BEDSIDE. NOTIFIED OF CONCERNS AND PULLING OFF BIPAP. ORDERS FOR ICU TRANSFER RECEIVED. 0358 - REPORT CALLED TO MARIAH LÓPEZ 0402- PT TRANSFERRED TO ICU 16
[2022-05-10 04:15] LABS: Hematocrit 28.6 % (37.0-53.0); Hemoglobin 8.7 g/dL (13.5-17.5); Mean Corpuscular HGB 30.1 pg (26.0-34.0); Mean Corpuscular HGB Conc 30.4 g/dL (31.5-36.5); Mean Corpuscular Volume 99 fL (80-100); Mean Platelet Volume 10.6 fL (9.1-12.4); Platelet Count 295 K/mm3 (150-400); RDW Coefficient Variation 16.4 % (11.7-14.2); RDW Standard Deviation 59.7 fL (35.1-46.3); Red Blood Cell Count 2.89 M/mm3 (4.30-5.90); White Blood Cell Count 44.75 K/mm3 (4.00-11.30)
--- NOTE | 2022-05-10 04:15 | NUR ---
ASSUMED CARE OF PT @0400, TRANSFER FROM PCU. PT ON BIPAP 14/7 W/10L O2 BLEED IN. O2 SATS 100%. HR 90'S. SBP 118. PRECEDEX STARTED AT 0.5MCG/KG/HR. PG [place]. PERIPHERAL R AC.
[2022-05-10 04:48] LABS: Albumin/Globulin Ratio 0.5 (0.8-1.8); Bilirubin, Total 0.5 mg/dL (0.1-1.0); Bun/Creatinine Ratio 69.4 (12.0-20.0); Calcium, Blood 7.7 mg/dL (8.5-10.1); Creatinine, Blood 0.63 mg/dL (0.60-1.20); Globulin, Blood 4.2 g/dL (2.2-4.0); Total Protein, Blood 6.2 g/dL (6.4-8.2)
--- NOTE | 2022-05-10 05:50 | NUR ---
SUMMARY: PT ON BIPAP 10/04 BACK UP RATE OF 14 FIO2 50%. RR 15, SPO2 >92%. PT DESATED INTO THE 80'S ONE TIME. LUNGS SOUNDS DIMINISHED THROUGHOUT. PRECEDEX INFUSING @0.5MCG/KG/HR. SBP 80-90'S. MAP >65. HR 70-80'S. PT IS ABLE TO NOD AND SHAKE HEAD TO ANSWER QUESTIONS. UNABLE TO UNDERSTAND VERBAL DUE TO BIPAP. PT CAREGIVER/FRIEND AT BEDSIDE. AREA OF REDNESS ON COXXYX. 2+ EDEMA NOTED BLE. RADIAL PULSES THREADY. EXTREMETIES COOL TO THE TOUCH.
[2022-05-10 07:31] LABS: BAND PERCENT MAN 5 % (0-8); BASOPHILS PERCENT MAN 0 % (0-2); EOSINOPHILS PERCENT MAN 0 % (0-6); LYMPHOCYTES ABSOLUTE MAN 2.23 K/mm3 (0.84-5.20); LYMPHOCYTES PERCENT MAN 5 % (21-46); MONOCYTES ABSOLUTE MAN 2.23 K/mm3 (0.16-1.47); MONOCYTES PERCENT MAN 5 % (4-13); NEUTROPHILS ABSOLUTE MAN 40.27 K/mm3 (1.96-9.15); SEG NEUTROPHILS PERCENT MAN 85 % (41-73); TOTAL CELLS COUNTED 100
--- NOTE | 2022-05-10 08:34 | NUR ---
ASSUMED CARE PT ON BIPAP 16/8 FIO2 50% WITH SPO2 >92%. PT HAS SOFT BP'S WITH MAP >60. PRECEDEX AT 0.5 AND TITRATED UP TO 0.7 D/T AGITATION FROM BIPAP. FRIEND/CAREGIVER AT BEDSIDE. WHEN PT WOKE, HE KEPT REQUESTING FOR THE BIPAP TO BE TAKEN OFF, BUT PT IS CONFUSED AT THIS TIME D/T SEDATION. PALLIATIVE CARE IS CONSULTED.
[2022-05-10 08:35] LABS: PCO2 Arterial 59.9 mmHg (35-45); pH Blood Arterial 7.44 (7.35-7.45)
--- NOTE | 2022-05-10 09:37 | NUR ---
Ethics consult order received and processed. Medical history, clinical trajectory, and decision making constellation reviewed. 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 A good nicole effort has been made to establish communication with his listed family members, but unfortunately this has been non-effective to date. The principals friend has apprised the medical team that the patient has explicitly disclosed that he would not want aggressive measures of intervention, if such treatments were suspected to be disproportionate in nature, and highly unlikely to produce a medical terminologist stabilizing outcome. Per ORS 127.635, it is legally and ethically appropriate to default to the friend as a proxy substitute decision maker to inform the care plan, and to de-escalate treatment and or make a hospice election, if the principal is in a terminal condition, his designated and known family members cannot be reached despite efforts to the contrary, and the provider has a high degree of clinical confidence that ongoing intervention will not be of reasonable clinical advantage. Thank you for this consult. Diogo Woods, PhD, [facility]
--- NOTE | 2022-05-10 10:04 | NUR ---
UPDATE PT COMPLAINS OF GENERAL PAIN WITH TYLENOL SUPPOSITORY TO BE GIVEN. PT ON CHRONIC PAIN MEDS AND DR ORELLANA CALLED AND WILL COME ASSESS PT IF IV PAIN MEDICATION IS INDICATED. GEL PAD PUT ON NOSE UNDER BIPAP.
--- NOTE | 2022-05-10 10:14 | NUR ---
Received call from RENE Santaigo reporting Pt and his friend may benefit from Palliative Care visit to assist with goals of care. Spoke with Primary RENE Echevarria and discussed case. Pt resting in bed with his eyes closed and on BIPAP. When disturbed by RT, Pt attempts to take BIPAP off. Pt's friend Tamie at bedside. Listened as Tamie discusses events leading up to current hospital stay. She reports she and Pt were at his PCP Dr Topete's yesterday and discussion was made regarding considering hospice. Listened as she expresses some guilt in regards to convincing him to come to the hospital as he has been stating to her that he wants to just focus on being comfortable. She states that he would not want any extraordinary measures including not wanting CPR and intubation. She states being his best friend for 20 years and is involved with many asspects of his life. She would like Pt to be placed on comfort care if he continues to decline in alignment with his wishes. She reports Pt has 2 sons who are estranged and a daughter who lives in [place]. She states daughter has "mental issues". Offered emotional support as Tamie is intermittently tearful. Attempted to contact daughter Tiesha Euceda several times with receiving busy signal. Attempted to contact Pt's brother twice and left message with request for a return phone call. Good nicole effort has been made to contact family with no success. Spoke with admitting provider Dr Adame and discussed case. Spoke with Diogo Woods and discussed case regarding decision maker and goals of care please see his note. Palliative Care will remain available for therapeutic and supportive visits. It has been determined in accordance with [place] statutes friend Tamie may act as decision maker.
--- NOTE | 2022-05-10 12:07 | NUR ---
UPDATE PT IS MORE ALERT AND ORIENTED THAN THIS MORNING. PT IS RESPONDING APPROPRIATELY TO QUESTIONS AND PT IS ABLE TO HOLD APPROPRIATE CONVERSATIONS.
--- NOTE | 2022-05-10 13:29 | NUR ---
PT YELLING OUT WITH BIPAP ON, "I CANT BREATH". RESP LABORED, RATE 30'S. SATS >90%. RT CALLED. DR ORELLANA AT BEDSIDE. LASIX ORDERED AND GIVEN. PT STILL HYPOTENSIVE W MAPS >65; ALBUMIN GIVEN. PT UNABLE TO VOID AFTER SEVERAL ATTEMPTS; SAPP CATH TO BE PLACED. AFTER DR ORELLANA SPOKE W PT AND PT'S FRIEND/CAREGIVER, PT NOW DNR; BRACELET PLACED. CHEST XRAY ORDERED.
[2022-05-10 14:10] LABS: Source, Urine Foley catheter
[2022-05-10 14:14] LABS: Appearance, Urine Hazy (Clear); Bilirubin, Urine Neg (Neg); Blood, Urine Neg (Neg); Color, Urine Yellow (P-Yellow); Glucose Qualitative, Urine Neg (Neg); Ketones, Urine Neg (Neg); Leukocyte Esterase, Urine Neg (Neg); Nitrite, Urine Neg (Neg); Protein, Urine 1+ (Neg); Urobilinogen, Urine NORM (Normal)
[2022-05-10 14:26] LABS: Bacteria Many /hpf; Red Blood Cells, Urine 0-2 /hpf (0-2); Squamous Epithelial Cells Rare /hpf (Few)
[2022-05-10 14:27] LABS: Hyaline Casts 0-2 /lpf (0-2)
--- NOTE | 2022-05-10 15:23 | NUR ---
PT STATES HE CAN NOT BREATH, RESP LABORED. RT CALLED. MASKED CHANGED OUT. PRECEDEX AT 0.7MCG, PT WIDE AWAKE AND ABLE TO HOLD APPROPRIATE CONVERSATION. PT REQUEST HIS "ANXIETY MEDICATION". DR ORELLANA CALLED AND UPDATED. ORDERS TO INCREASE PRECEDEX UP TO 1.4MCG. PRECEDEX INCREASED TO 1.2MCG.
--- NOTE | 2022-05-10 18:38 | NUR ---
SHIFT SUMMARY PT IS SLEEPING COMFORTABLY AFTER 0.25 OF ATIVAN AND 15MG MS CONTIN PO. PRECEDEX IS RUNNING AT 1.4. BP SOFT WITH MAPS >65; PAST TWO HOURS BP HAS BEEN TRENDING UP BIPAP 16/8 FIO2 50% WITH SPO2 >92%. PT INITIALLY HAD PRECEDEX AT 0.7. PT'S AGITATION/PAIN CONTROL WAS LABILE THROUGHOUT THE DAY; Q4H 25MCG FENTANYL, TITRATING PRECEDEX UP, MS CONTIN PO, AND 0.25 ATIVAN WAS REQUIRED TO HAVE THE PT RESTING/SLEEPING COMFORTABLY. PT HAS FRIEND/CAREGIVER AT BEDSIDE THROUGHOUT DAY PROVIDING ANXIETY RELIEF. PT HAS STATED SEVERAL TIMES THROUGHOUT THE DAY, "I WANT TO " AND "JUST LET ME GO". PT'S FRIEND/CAREGIVER ALSO EXPRESSED GUILT AT "CONVINCING PT TO GIVE IT ANOTHER GO". PALLIATIVE CARE AND TLAANG HAS BEEN CONSULTED, WITH THE PLAN BEING TO CONTINUE TREATMENT WHILE ATTEMPTING TO KEEP THE PT COMFORTABLE. LASIX AND ALBUMIN STARTED. SAPP DRAINING TO GRAVITY WITH SUFFICIENT OUTPUT.
--- NOTE | 2022-05-10 19:15 | NUR ---
ASSUMED CARE OF PT @0700. PT CALM AND SEDATE DURING BEDSIDE REPORT. PRECEDEX 1.4MCG/KG/HR. BIPAP IN PLACE, 10/04 FIO2 50%. TKO 10MLS/HR. SAPP IN PLACE AND DRAINING TO GRAVITY.
--- NOTE | 2022-05-10 21:00 | NUR ---
DURING PT ASSESSMENT, ORAL CARE, AND REPOSTIONING PT STARTED CRYING OUT THAT HE "WANTED TO " AND "JUST LET HIM GO" AND TO "LEAVE HIM ALONE." PT PUSHING NURSING STAFF OFF AND CONTINUED TO REPEAT THE SAME STATEMENTS. PT EXTREMELY AGGITATED, HR ELEVATED TO 110'S, AND SPO2 INTO THE 80'S. FENTANYL AND ATIVAN PRN GIVEN FOR AGGITATION. PT RELAXED WITH THE MEDICATION AND LACK OF STIMULATION. FRIEND COMFORT AT BEDSIDE FOR SUPPORT AND WILL BE STAYING THE NIGHT.
--- NOTE | 2022-05-11 00:45 | NUR ---
PT GIVEN ATIVAN PRIOR TO NURSING CARE. HELPED LESSEN ANXIETY AND AGGITATION. PT PASSIVELY ALLOWED ORAL CARE AND REPOSITIONING. PT EXPRESSED THAT HE DID NOT WANT THE BIPAP. PT EVENTUALLY ALLOWED BIPAP TO BE PUT ON. DURING CARE PT BECAME TACHYCARDIC.
--- NOTE | 2022-05-11 01:30 | NUR ---
UPDATE PT CONT TO BE RESTLESS AND UNCOMFORTABLE DESPITE INTERVENTIONS. HE CONTINUES TO STATE WITH THE BIPAP MASK ON "TAKE THIS OFF", AND "I'M READY TO ". OTIS AT BEDSIDE STATED THAT IT WAS TIME TO PROGRESS TO COMFORT CARE AND THE PATIENT AGREED. DR WASHBURN CALLED AND PROVIDED ORDERS FOR COMFORT CARE. BIPAP MASK REMOVED AND PT PLACED ON 10L NC. PLAN FOR COMFORT MEDS TO BE GIVEN PRN.
--- NOTE | 2022-05-11 04:30 | NUR ---
RESIDUALS 250MLS. REINSTILLED. NUNU HILL RN, CLINICAL JUDGEMENT: PUT TF ON SB D/T RESIDUALS.
--- NOTE | 2022-05-11 05:46 | NUR ---
END OF SHIFT SUMMARY SINCE BEING CHANGED TO COMFORT CARE, PT HAS BEEN GIVEN SEVERAL PRN MEDICATIONS FOR PAIN, ANXIETY, AND AIR HUNGER, SEE EMAR. BERG AT BEDSIDE ALL NIGHT AND HAS NOT SLEPT. PT CURRENTLY LOOKS COMFORTABLE WITH NC IN PLACE. WILL REPORT TO AM RN WHEN AVAILABLE.
--- NOTE | 2022-05-11 06:07 | NUR ---
ALEXANDRA PT PASSED AT 0554, OTIS AT BEDSIDE. ALL PERSONAL BELONGINGS TAKEN BY OTIS. [facility] DIRECTIVES CALLED.
== END 2022-05-11 05:54 | DRG 871 ==
LOC: ER 13:03 → PCU 15:47 → ICUW 05-10 04:00
PROVIDERS: Internal Medicine; Student in an Organized Health Care Education/Training Program; ADMIT Internal Medicine
PROC: 5A09457 Assistance with Respiratory Ventilation, 24-96 Consecutive Hours, Continuous Positive Airway Pressure (ICD-10-PCS; principal; 2022-05-09)
PROC: 3E03329 Introduction of Other Anti-infective into Peripheral Vein, Percutaneous Approach (ICD-10-PCS; 2022-05-09)
PROC: 5A0935A Assistance with Respiratory Ventilation, Less than 24 Consecutive Hours, High Flow/Velocity Cannula (ICD-10-PCS; 2022-05-10)
DX: A41.9 Sepsis, unspecified organism (principal); E43 Unspecified severe protein-calorie malnutrition; I50.33 Acute on chronic diastolic (congestive) heart failure; J18.9 Pneumonia, unspecified organism; J96.21 Acute and chronic respiratory failure with hypoxia; E87.1 Hypo-osmolality and hyponatremia; F11.20 Opioid dependence, uncomplicated; J44.1 Chronic obstructive pulmonary disease with (acute) exacerbation; Z20.822 Contact with and (suspected) exposure to COVID-19; R65.20 Severe sepsis without septic shock; I27.20 Pulmonary hypertension, unspecified; I48.0 Paroxysmal atrial fibrillation; I07.1 Rheumatic tricuspid insufficiency; D50.9 Iron deficiency anemia, unspecified; J44.9 Chronic obstructive pulmonary disease, unspecified; Z99.81 Dependence on supplemental oxygen; F41.9 Anxiety disorder, unspecified; Z79.899 Other long term (current) drug therapy; Z88.5 Allergy status to narcotic agent; Z88.8 Allergy status to other drugs, medicaments and biological substances; Z90.49 Acquired absence of other specified parts of digestive tract; Z79.01 Long term (current) use of anticoagulants; Z66 Do not resuscitate; Z68.29 Body mass index [BMI] 29.0-29.9, adult; Z98.890 Other specified postprocedural states; I11.0 Hypertensive heart disease with heart failure; Z87.891 Personal history of nicotine dependence; R79.81 Abnormal blood-gas level
CPT/HCPCS: 0241U; 36415; 36600; 51702; 71045; 80053; 81001; 82803; 83605; 83880; 84484; 85025; 87040; 93005; 93010; 94640; 94660; 94664; 94762; 96365; 96367; 96375; 99285-25; A9270; J0456; J0692; J1170; J1940; J2060; J2543; J3010; J3370; J7030; J7040; J7050; P9047